=== PATIENT | female | born 1985 | race African-American/Black ===

== ENCOUNTER 2018-01-21 19:11 | Inpatient (IN) | payer SELFPAY ==
[~2018-01-21] VITALS: Ht 152.4 cm; Wt 52.2 kg
--- NOTE | 2018-01-21 19:15 | NUR ---
PT AMBULATORY TO ER BED 1. BIBHUSBAND C/O "HBP AND CP" X 2 HOURS. PT SEEN IN ER LAST NIGHT FOR SAME. PT DENIES SOB. PT PLACED IN GOWN AND ON MANAGER FOOD BEVERAGE. VSS/RESP EVEN UNLABORED/NAD NOTED/SKIN WARM AND DRY/AFEBRILE/DENIES N-V-D/AOX4. AWAITNG MD RODRIGUEZ.
--- NOTE | 2018-01-21 19:26 | NUR ---
KETTLE WORKER AT BEDSIDE FOR EVAL.
--- NOTE | 2018-01-21 19:50 | NUR ---
XRAY AT BEDSIDE.
[2018-01-21] MEDS ORDERED: HYDR25TA4 PO (19:51)
--- NOTE | 2018-01-21 19:54 | NUR ---
EMT AT BEDSIDE FOR EKG.
[2018-01-21] MEDS ORDERED: IV NS 0.9% 500 ML BAG IV ONE (20:00)
[2018-01-21] MEDS ORDERED: ASPIRIN 325 MG TABLET PO ONE (20:00)
--- NOTE | 2018-01-21 20:05 | NUR ---
18G IV TO R AC X 1 ATTEMPT USING ASEPTIC TECH, BLOOD HANDED OVER TO THE LAB AT BEDSIDE. IV FLUSHES EASILY WITH NS, NO S/S INFILTRATION NOTED AT THIS TIME.
[2018-01-21] MEDS ORDERED: ASPIRIN 325 MG TABLET ONE (20:10)
[2018-01-21 20:19] LABS: HEMATOCRIT 40 % (33-45); HEMOGLOBIN 13.6 g/dL (11.5-14.8); MEAN CORPUSCULAR HEMOGLOBIN 26 PG (26.0-33.0); MEAN CORPUSCULAR HGB CONC 34 g/dl (31.0-36.0); MEAN CORPUSCULAR VOLUME 78 fL (82-100); PLATELET COUNT (AUTO) 505 /CMM (150-450); RDW COEFFICIENT OF VARIATION 13.6 (11.5-15.0); RED BLOOD CELL COUNT(AUTO) 5.16 MIL/uL (4.0-5.2); WHITE BLOOD COUNT (AUTO) 5.4 K/uL (4.3-11.0)
--- NOTE | 2018-01-21 20:21 | NUR ---
MED RECON, PT BELONGINGS LIST AND MRSA SWAB COMPLETE.
[2018-01-21 20:22] LABS: CALCIUM, SERUM 10.3 mg/dL (8.5-10.1); CARBON DIOXIDE 29 mmol/L (21-32); CHLORIDE 95 mmol/L (98-107); CREATININE 0.8 mg/dL (0.6-1.3); GLUCOSE 97 mg/dL (74-106); POTASSIUM 3.2 mmol/L (3.5-5.1); SODIUM SERUM 133 mmol/L (136-145); UREA NITROGEN, BLOOD 8 mg/dL (7-18)
[2018-01-21 20:25] LABS: INR 0.91 (0.85-1.15)
[2018-01-21 20:29] LABS: TROPONIN I < 0.017 ng/mL (0.00-0.056)
[2018-01-21 20:30] LABS: ALANINE AMINOTRANSFERASE 46 U/L (12-78); ALBUMIN 4.1 g/dL (3.4-5.0); ALKALINE PHOSPHATASE 151 U/L (46-116); ASPARTATE AMINOTRANSFERASE 63 U/L (15-37); BILIRUBIN,DIRECT 0.1 mg/dL (0.0-0.2); BILIRUBIN,TOTAL 0.4 mg/dL (0.2-1.0); TOTAL PROTEIN, SERUM 9.4 g/dL (6.4-8.2)
[2018-01-21 21:01] LABS: BASOPHILS % (AUTO) 0.4 % (0.0-2.0); EOSINOPHILS % (AUTO) 2.8 % (0.0-6.0); LYMPHOCYTES # (AUTO) 1.5 /CMM (0.8-4.8); LYMPHOCYTES % (AUTO) 26.2 % (20.0-44.0); MONOCYTES # (AUTO) 0.3 /CMM (0.1-1.30); MONOCYTES % (AUTO) 5.4 % (2.0-12.0); NEUTROPHILS # (AUTO) 3.8 /CMM (1.8-8.9); NEUTROPHILS % (AUTO) 65.2 % (43.0-81.0)
--- NOTE | 2018-01-21 21:02 | NUR ---
PAGED HIGH WIRE ARTIST KIERAN ESQUEDA
[2018-01-21] MEDS ORDERED: hydrALAZINE HCL IV 20 MG VIAL ONE (21:23)
[2018-01-21] MEDS ORDERED: hydrALAZINE HCL IV 20 MG VIAL IV ONE (21:30)
--- NOTE | 2018-01-21 22:46 | NUR ---
REPORT GIVEN TO BLAS SMILEY FOR KATARZYNA. PT GOING TO TELE RM 108.
[2018-01-21] MEDS ORDERED: ONDANSETRON HCL/PF 4 MG/2 ML VIAL ONE (22:47)
--- NOTE | 2018-01-21 22:56 | NUR ---
PT TRANSPORTED TO TELE RM 108 VIA STRETCHER ON ROUTEMAN WITH RN PER ACLS PROTOCOL. VSS.
[2018-01-21] MEDS ORDERED: MAGNESIUM HYDROXIDE 30 ML UDC PO PRN (23:00)
[2018-01-21] MEDS ORDERED: Z GUARD REMEDY 2 OZ OINT TP PRN (23:00)
[2018-01-21] MEDS ORDERED: ONDANSETRON HCL/PF - ER 4 MG/2 ML VIAL IV ONE (23:00)
[2018-01-21] MEDS ORDERED: POTASSIUM CHLORIDE 20 MEQ TAB.PRT.SR PO ONE (23:00)
[2018-01-21] MEDS ORDERED: HYDROCODONE/APAP 10/325MG 1 EA TABLET PO PRN (23:00)
[2018-01-21] MEDS ORDERED: ACETAMINOPHEN 325 MG TABLET PO PRN (23:00)
[2018-01-21] MEDS ORDERED: ONDANSETRON HCL/PF 4 MG/2 ML VIAL IVP PRN (23:00)
[2018-01-21] MEDS ORDERED: MAG HYDROX/AL HYDROX/SIMETH 30 ML UDC PO PRN (23:00)
--- NOTE | 2018-01-21 23:00 | NUR ---
TELE-1/HOME MANAGEMENT SUPERVISOR RECEIVED PT ACCOMPANIED BY ER STAFF. PT AMBULATED TO BED 108 WITH STEADY GAIT. ADMISSION ASSESSMENT COMPLETE. IV ASSESSMENT COMPLETE. PT ORIENTED TO ROOM AND CALL LIGHT USE. WILL CONTINUE TO MONITOR.
[2018-01-21 23:08] VITALS: BP 156/86
[2018-01-21] MEDS: IV NS 0.9% 1,000 ML IV PRN (23:30)
[2018-01-22] VITALS (7 sets, daily range): BP systolic 140–163; BP diastolic 81–121
--- NOTE | 2018-01-22 08:00 | NUR ---
[facility] RN NOTES RECEIVED REPORT FROM PM NURSE. PATIENT IN BED, A/OX4. NO SOB, NO DISCOMFORT NOTED AT THIS TIME. PT'S HR IS SR 86 ON MORTICIAN HELPER. PATIENT IS AMBULATORY, AT BEDSIDE. RIGHT AC 18G IV LINE IS PATIENT, INTACT WITH IV FLUIDS NS@75ML/HR. ALL SAFETY MEASURES ARE IMPLEMENTED, BED IN LOW, LOCKED POSITION, CALL LIGHT IN REACH.WILL CONT. TO MONITOR.
[2018-01-22 08:13] LABS: BASOPHILS % (AUTO) 0.5 % (0.0-2.0); EOSINOPHILS % (AUTO) 2.1 % (0.0-6.0); HEMATOCRIT 39 % (33-45); HEMOGLOBIN 12.5 g/dL (11.5-14.8); LYMPHOCYTES # (AUTO) 1.3 /CMM (0.8-4.8); LYMPHOCYTES % (AUTO) 23.4 % (20.0-44.0); MEAN CORPUSCULAR HEMOGLOBIN 26 PG (26.0-33.0); MEAN CORPUSCULAR HGB CONC 32 g/dl (31.0-36.0); MEAN CORPUSCULAR VOLUME 81 fL (82-100); MONOCYTES # (AUTO) 0.5 /CMM (0.1-1.30); MONOCYTES % (AUTO) 8.5 % (2.0-12.0); NEUTROPHILS # (AUTO) 3.8 /CMM (1.8-8.9); NEUTROPHILS % (AUTO) 65.5 % (43.0-81.0); PLATELET COUNT (AUTO) 428 /CMM (150-450); RDW COEFFICIENT OF VARIATION 14.6 (11.5-15.0); RED BLOOD CELL COUNT(AUTO) 4.86 MIL/uL (4.0-5.2); WHITE BLOOD COUNT (AUTO) 5.7 K/uL (4.3-11.0)
[2018-01-22] MEDS: hydrALAZINE HCL IV 20 MG VIAL IV PRN ×2 (08:31→22:04)
[2018-01-22 08:32] LABS: CALCIUM, SERUM 9.2 mg/dL (8.5-10.1); CARBON DIOXIDE 24 mmol/L (21-32); CHLORIDE 100 mmol/L (98-107); CREATININE 0.8 mg/dL (0.6-1.3); GLUCOSE 98 mg/dL (74-106); MAGNESIUM 1.8 mg/dL (1.8-2.4); PHOSPHORUS 4.1 mg/dL (2.5-4.9); POTASSIUM 3.3 mmol/L (3.5-5.1); SODIUM SERUM 138 mmol/L (136-145); UREA NITROGEN, BLOOD 6 mg/dL (7-18)
[2018-01-22 08:34] LABS: TROPONIN I < 0.017 ng/mL (0.00-0.056)
[2018-01-22 08:39] LABS: CHOLESTEROL 312 mg/dL (<200); HDL CHOLESTEROL 112 mg/dL (40-60); LDL 174 mg/dL (0-99); THYROID STIMULATING HORMONE 3.534 uIU/mL (0.358-3.74); TRIGLYCERIDES 106 mg/dL (30-150)
--- NOTE | 2018-01-22 10:02 | NUR ---
[facility] RN NOTES TALKED TO LAKESHIA GREEN FOR POTASSIUM CHLORIDE 20MEQ ORDER, PATIENT'S POTASSIUM IS 3.3. NEW ORDER IS PLACED.
[2018-01-22] MEDS: POTASSIUM CL. PREMIX PERIPHER. 50 ML IV SCH ×4 (10:54→13:35)
[2018-01-22] MEDS: HYDROCODONE/APAP 5/325MG 1 EACH TABLET PO PRN ×2 (11:07→18:09)
[2018-01-22] MEDS: IV NS 0.9% 1,000 ML IV PRN (20:20)
--- NOTE | 2018-01-22 22:39 | NUR ---
rechecked bp and noted left arm 163/121 hr 79, right arm 159/113 hr 86, supervisor propellant charge loading made aware and agree with me to give prn hydralazine 10 mg iv, requested sleeping pill and STRATEGY DIRECTOR order ambien 5 mg x1 only.
[2018-01-23] VITALS: BP 155/114
[2018-01-23 04:00] VITALS: BP 145/102
[2018-01-23 04:12] VITALS: BP 145/102
--- NOTE | 2018-01-23 06:49 | NUR ---
pt slept well. pt didn't call to get her sleeping pill. bp responded to prn meds,asymptomatic, will continue to monitor, sinus tachy @90-100's.will continue to monitor.
[2018-01-23 08:00] VITALS: BP 137/93
[2018-01-23 08:04] LABS: BASOPHILS % (AUTO) 0.7 % (0.0-2.0); EOSINOPHILS % (AUTO) 2.6 % (0.0-6.0); HEMATOCRIT 38 % (33-45); HEMOGLOBIN 12.1 g/dL (11.5-14.8); LYMPHOCYTES # (AUTO) 1.6 /CMM (0.8-4.8); LYMPHOCYTES % (AUTO) 30.4 % (20.0-44.0); MEAN CORPUSCULAR HEMOGLOBIN 26 PG (26.0-33.0); MEAN CORPUSCULAR HGB CONC 32 g/dl (31.0-36.0); MEAN CORPUSCULAR VOLUME 81 fL (82-100); MONOCYTES # (AUTO) 0.5 /CMM (0.1-1.30); MONOCYTES % (AUTO) 8.7 % (2.0-12.0); NEUTROPHILS % (AUTO) 57.6 % (43.0-81.0); PLATELET COUNT (AUTO) 387 /CMM (150-450); RDW COEFFICIENT OF VARIATION 14.3 (11.5-15.0); RED BLOOD CELL COUNT(AUTO) 4.71 MIL/uL (4.0-5.2); WHITE BLOOD COUNT (AUTO) 5.2 K/uL (4.3-11.0)
[2018-01-23 08:13] LABS: CALCIUM, SERUM 8.6 mg/dL (8.5-10.1); CREATININE 0.8 mg/dL (0.6-1.3); POTASSIUM 3.5 mmol/L (3.5-5.1)
[2018-01-23 12:00] VITALS: BP 136/97
[2018-01-23] MEDS ORDERED: AMLO2.5T2 PO (13:15)
--- NOTE | 2018-01-23 14:15 | NUR ---
RN NOTE PT DISCHARGED HOME WITH KIERAN, IN STABLE CONDITION, AOX4, BELONGINGS PROVIDED TO PT, BELONGINGS LIST SIGNED, EXIT CARE DONE, DISCHARGE INSTRUCTIONS GIVEN TO PT, PRESCRIPTION PROVIDED TO PT, TEACHING DONE TO PT, PT VERBALIZED UNDERSTANDING, PAPERS SIGNED, IV REMOVED, ID BAND REMOVED, PT LEFT VIA OWN TRANSPORTATION. SKIN WAS INTACT.
[2018-01-23] MEDS ORDERED: ZOLPIDEM TARTRATE 5 MG TABLET PO ONE (22:30)
== END 2018-01-23 14:29 | disposition home or self-care (01) | DRG 305 ==
LOC: ER 19:12 → TELE1 22:36
PROVIDERS: ADMIT Nurse Practitioner Acute Care; ATTEND Nurse Practitioner Acute Care
DX: I16.1 Hypertensive emergency (principal); E87.1 Hypo-osmolality and hyponatremia; E87.6 Hypokalemia; E83.52 Hypercalcemia; T50.2X5A Adverse effect of carbonic-anhydrase inhibitors, benzothiadiazides and other diuretics, initial encounter; R74.0 Nonspecific elevation of levels of transaminase and lactic acid dehydrogenase [LDH]; Z72.89 Other problems related to lifestyle; R07.89 Other chest pain; R82.6 Abnormal urine levels of substances chiefly nonmedicinal as to source; Z91.14 Patient's other noncompliance with medication regimen; Y92.009 Unspecified place in unspecified non-institutional (private) residence as the place of occurrence of the external cause
CPT/HCPCS: 36415; 71045-TC; 80048-TC; 80061-TC; 80076-TC; 80305; 83735-TC; 84100-TC; 84443-TC; 84484-TC; 85025-TC; 85730-TC; 87081-TC; A4606; J0360; J2405; J3480; J7030; J7040; Z7610